=== PATIENT | female | born 1950 | race Hispanic/Latino ===

== ENCOUNTER 2018-11-16 21:30 | Emergency (ER) | payer OTHER ==
[~2018-11-16 21:30] MED LIST: CALC200T42 PO; CALC480G PO; LABE200T5 PO; LISI-613 PO; MAGN250T2 PO; PRAV20TA4 PO; SITA1TBM7 PO; VITA1CAP85 PO
[2018-11-16] MEDS ORDERED: IBUPROFEN 600 MG TABLET ONE (22:00)
== END 2018-11-16 22:55 | disposition home or self-care (01) ==
LOC: EDH 21:30
DX: S93.492A Sprain of other ligament of left ankle, initial encounter (principal); S73.192A Other sprain of left hip, initial encounter; S93.692A Other sprain of left foot, initial encounter; E78.5 Hyperlipidemia, unspecified; E11.9 Type 2 diabetes mellitus without complications; I10 Essential (primary) hypertension; Z90.49 Acquired absence of other specified parts of digestive tract; Z90.710 Acquired absence of both cervix and uterus; Z98.890 Other specified postprocedural states; W18.39XA Other fall on same level, initial encounter; Y93.01 Activity, walking, marching and hiking; Y92.89 Other specified places as the place of occurrence of the external cause; Y99.8 Other external cause status
CPT/HCPCS: 73552; 73610; 73620

== ENCOUNTER 2020-09-08 15:54 | Emergency (ER) | payer OTHER ==
[2020-09-08 16:19] LABS: BASOPHILS % (AUTO) 0.1 % (0.0-5.0); HEMATOCRIT 41.7 % (36-48); LYMPHOCYTES % (AUTO) 23.5 % (21.0-51.0); MEAN CORPUSCULAR HGB CONC 31.9 g/dL (32.0-36.0); MEAN CORPUSCULAR VOLUME 94.1 fL (79-99); MONOCYTES % (AUTO) 7.7 % (3.0-13.0); NEUTROPHILS % (AUTO) 64.6 % (40.0-77.0); PLATELET COUNT (AUTO) 199 K/uL (130-400); RED BLOOD CELL COUNT(AUTO) 4.43 MIL/uL (4.00-5.50); RED CELL DISTRIBUTION WIDTH 13.5 % (11.0-15.5); WHITE BLOOD COUNT (AUTO) 7.4 K/uL (4.8-10.8)
[2020-09-08 16:32] LABS: INR 1.02 (0.85-1.15); PROTHROMBIN TIME 10.9 SEC (9.6-11.6)
[2020-09-08 16:33] LABS: PARTIAL THROMBOPLASTIN TIME 25.2 SEC (26.3-35.5)
[2020-09-08 16:44] LABS: CREATININE 0.8 mg/dL (0.5-1.5); POTASSIUM 4.4 mmol/L (3.5-5.1)
[2020-09-08 16:48] LABS: ALBUMIN 3.6 g/dL (3.5-5.0); BILIRUBIN,TOTAL 0.2 mg/dL (0.2-1.0); TOTAL PROTEIN, SERUM 7.1 g/dL (6.0-8.3)
[2020-09-08 17:30] LABS: APPEARANCE,URINE Clear (CLEAR); BILIRUBIN,URINE Negative (NEGATIVE); COLOR,URINE Yellow (YELLOW); GLUCOSE, URINE (UA) Negative (NEGATIVE); KETONES,URINE Negative (NEGATIVE); LEUKOCYTE ESTERASE ,URINE Negative (NEGATIVE); NITRATE,URINE Negative (NEGATIVE); OCCULT BLOOD,URINE Negative (NEGATIVE); PH,URINE 5.5 (5.0-8.0); PROTEIN,URINE Negative (NEGATIVE); UROBILINOGEN,URINE 0.2 mg/dL (0.2-1.0)
[2020-09-08 17:38] LABS: AMPHET/METH SCREEN,URINE NEGATIVE (NEGATIVE); BARBITURATE SCREEN, URINE NEGATIVE (NEGATIVE); BENZODIAZEPINES SCREEN,URINE NEGATIVE (NEGATIVE); CANNABINOID SCREEN,URINE NEGATIVE (NEGATIVE); COCAINE SCREEN,URINE NEGATIVE (NEGATIVE); OPIATE SCREEN,URINE NEGATIVE (NEGATIVE); PHENCYCLIDINE SCREEN,URINE NEGATIVE (NEGATIVE)
[2020-09-08] MEDS ORDERED: METOCLOPRAMIDE 10 MG/2 ML VIAL ONE (18:42)
[2020-09-08] MEDS ORDERED: DiphenhydrAMINE HCL 50 MG/ML VIAL ONE (18:42)
[2020-09-08] MEDS ORDERED: SODIUM CHLORIDE 0.9% 100 ML IV ONE (18:43)
[2020-09-08] MEDS ORDERED: KETOROLAC TROMETHAMINE 15MG/ML ONE (19:18)
== END 2020-09-08 19:59 | disposition home or self-care (01) ==
LOC: EDH 15:54
DX: R51.9 Headache, unspecified (principal); R20.2 Paresthesia of skin; R07.89 Other chest pain; Z20.822 Contact with and (suspected) exposure to COVID-19; E11.9 Type 2 diabetes mellitus without complications; E78.5 Hyperlipidemia, unspecified; I10 Essential (primary) hypertension
CPT/HCPCS: 36415; 70450; 71045; 80053; 80305; 81003; 82550; 83721; 84484; 85025; 85610; 85651; 85730; 93005; 96361; 96374; 96375; 99285; J1200; J1885; J2765; U0003

== ENCOUNTER 2020-11-04 01:50 | Emergency (ER) | payer OTHER ==
[~2020-11-04 01:50] MED LIST changes: -LISI-613 PO; +LISI20TA24 PO
[2020-11-04] MEDS ORDERED: ASPIRIN 325 MG TABLET ONE (02:16)
[2020-11-04] MEDS ORDERED: NITROGLYCERIN 1GM/1 INCH PACKET TD ONE (02:16)
[2020-11-04] MEDS ORDERED: MAGNESIUM HYDROXIDE 30 ML/UDCUP ONE (02:17)
[2020-11-04] MEDS ORDERED: LIDOCAINE HCL 2% VISCOUS 15 ML UDCUP ONE (02:17)
[2020-11-04 02:20] LABS: BASOPHILS % (AUTO) 0.2 % (0.0-5.0); EOSINOPHILS % (AUTO) 2.6 % (0.0-8.0); HEMATOCRIT 34.9 % (36-48); LYMPHOCYTES % (AUTO) 33.6 % (21.0-51.0); MEAN CORPUSCULAR HEMOGLOBIN 31.3 pg (27.0-33.0); MEAN CORPUSCULAR VOLUME 94.8 fL (79-99); MONOCYTES % (AUTO) 7.9 % (3.0-13.0); NEUTROPHILS % (AUTO) 55.7 % (40.0-77.0); PLATELET COUNT (AUTO) 177 K/uL (130-400); RED BLOOD CELL COUNT(AUTO) 3.68 MIL/uL (4.00-5.50); RED CELL DISTRIBUTION WIDTH 13.4 % (11.0-15.5); WHITE BLOOD COUNT (AUTO) 5.3 K/uL (4.8-10.8)
[2020-11-04 02:30] LABS: CREATININE 0.7 mg/dL (0.5-1.5); POTASSIUM 4.2 mmol/L (3.5-5.1)
[2020-11-04 02:33] LABS: PROTHROMBIN TIME 10.9 SEC (9.6-11.6)
[2020-11-04 02:34] LABS: ALBUMIN 3.3 g/dL (3.5-5.0); BILIRUBIN,TOTAL 0.2 mg/dL (0.2-1.0); PARTIAL THROMBOPLASTIN TIME 26.5 SEC (26.3-35.5); TOTAL PROTEIN, SERUM 6.5 g/dL (6.0-8.3)
[2020-11-04 02:40] LABS: B-TYPE NATRIURETIC PEPTIDE 55 pg/mL (0-100)
[2020-11-04] MEDS ORDERED: SODIUM CHLORIDE 0.9% 1000ML 1,000 ML IV ONE (05:29)
[2020-11-04] MEDS ORDERED: FAMOTIDINE/PF 20 MG/2 ML VIAL IV ONE (05:31)
[2020-11-04] MEDS ORDERED: IOHEXOL 350 MG/ML 100ML INFUS..BTL IV ONE (06:14)
== END 2020-11-04 10:39 | disposition home or self-care (01) ==
LOC: EDH 01:50
DX: R07.89 Other chest pain (principal); R10.13 Epigastric pain; F45.0 Somatization disorder; M54.6 Pain in thoracic spine; F41.9 Anxiety disorder, unspecified; E11.9 Type 2 diabetes mellitus without complications; E78.5 Hyperlipidemia, unspecified; I10 Essential (primary) hypertension; Z90.49 Acquired absence of other specified parts of digestive tract; Z90.710 Acquired absence of both cervix and uterus
CPT/HCPCS: 36415; 71046; 71275; 74177; 80053; 82550; 83690; 83880; 84484; 85025; 85610; 85730; 93005; 96361; 96374; 99285; J3490; J7030; Q9967

== ENCOUNTER 2020-11-30 06:08 | Day surgery (SDC) | payer OTHER ==
[~2020-11-30] VITALS: Ht 165.1 cm; Wt 81.6 kg
[~2020-11-30 06:08] MED LIST changes: -CALC200T42 PO; -CALC480G PO; +FLUT15.845 NS; -LISI20TA24 PO; +PIOG30TA10 PO; -PRAV20TA4 PO; -SITA1TBM7 PO; +SUCR1TAB2 PO; -VITA1CAP85 PO
[2020-11-30] MEDS ORDERED: SODIUM CHLORIDE 0.9% 1000ML 1,000 ML IV ONE (06:22)
[2020-11-30 07:38] VITALS: BP 140/75
[2020-11-30] MEDS ORDERED: PROPOFOL 10 MG/ML 20ML VIAL IV ONE (07:47)
[2020-11-30] MEDS ORDERED: LIDOCAINE HCL 1% 20 ML VIAL ONE (07:47)
[2020-11-30 08:15] VITALS: BP 114/61
[2020-11-30 08:20] VITALS: BP 113/63
[2020-11-30 08:34] VITALS: BP 115/64
[2020-11-30 08:38] VITALS: BP 131/64
== END 2020-11-30 08:47 | disposition home or self-care (01) ==
LOC: ENDO 06:08 → DAH 06:08 → ENDO 08:47
PROVIDERS: ATTEND Internal Medicine Gastroenterology
DX: R14.0 Abdominal distension (gaseous) (principal); Z20.822 Contact with and (suspected) exposure to COVID-19; K57.30 Diverticulosis of large intestine without perforation or abscess without bleeding; K21.00 Gastro-esophageal reflux disease with esophagitis, without bleeding; K29.70 Gastritis, unspecified, without bleeding; I10 Essential (primary) hypertension; E66.9 Obesity, unspecified; E11.9 Type 2 diabetes mellitus without complications; E78.5 Hyperlipidemia, unspecified; Z86.010 Personal history of colon polyps; Z90.710 Acquired absence of both cervix and uterus; Z90.89 Acquired absence of other organs; Z90.49 Acquired absence of other specified parts of digestive tract; Z68.30 Body mass index [BMI] 30.0-30.9, adult; Z79.899 Other long term (current) drug therapy
CPT/HCPCS: 43239; 45378; 82948; A4215 ×2; A4221; A4222; A4223; A4606; A4620; A4657 ×2; A4663; C9803; J2704; J7030; U0003

== ENCOUNTER 2021-05-07 15:52 | Emergency (ER) | payer OTHER ==
[~2021-05-07] VITALS: Ht 165.1 cm; Wt 81.6 kg
[2021-05-07] MEDS ORDERED: ALBUTEROL INHALER 90MCG/INH IH PRN (17:00)
[2021-05-07] MEDS ORDERED: ACETAMINOPHEN WITH CODEINE 1 TAB TAB PO ONE (17:00)
[2021-05-07] MEDS ORDERED: D-ME1POW16 PO (17:01)
[2021-05-07] MEDS ORDERED: ALBUHFA IH (17:01)
[2021-05-07] MEDS ORDERED: FLUT1DIS IH (17:01)
[2021-05-07] MEDS ORDERED: ACETAMINOPHEN WITH CODEINE 1 TAB TAB ONE (17:26)
[2021-05-07] MEDS ORDERED: ALBUTEROL INHALER 90MCG/INH IH ONE (17:26)
[2021-05-07 17:34] VITALS: BP 145/84
== END 2021-05-07 17:40 | disposition home or self-care (01) ==
LOC: EDH 15:52
DX: U07.1 COVID-19 (principal); J22 Unspecified acute lower respiratory infection; I10 Essential (primary) hypertension; E11.9 Type 2 diabetes mellitus without complications; E78.00 Pure hypercholesterolemia, unspecified; Z79.51 Long term (current) use of inhaled steroids; Z79.84 Long term (current) use of oral hypoglycemic drugs; Z79.899 Other long term (current) drug therapy
CPT/HCPCS: 87635; 87804 ×2; 87880; 99283; C9803

== ENCOUNTER → 2023-08-10 | Outpatient (CLI) | payer OTHER ==
[~2023-08-10] MED LIST changes: +ALBUHFA IH; +D-ME1POW16 PO; +FLUT1DIS IH; -LABE200T5 PO; +LABE200T7 PO; -MAGN250T2 PO; +MAGN250T35 PO
[2023-08-10 09:34] LABS: BASOPHILS # (AUTO) 0.02 K/uL (0.00-0.20); BASOPHILS % (AUTO) 0.4 % (0.0-5.0); EOSINOPHILS # (AUTO) 0.09 K/uL (0.00-0.70); EOSINOPHILS % (AUTO) 1.6 % (0.0-8.0); HEMATOCRIT 44.8 % (36-48); IMMATURE GRANULOCYTE ABSOLUTE 0.01 K/uL (0-1); LYMPHOCYTES # (AUTO) 1.6 K/uL (1.0-4.8); LYMPHOCYTES % (AUTO) 28.6 % (21.0-51.0); MEAN CORPUSCULAR HEMOGLOBIN 30.7 pg (27.0-33.0); MEAN CORPUSCULAR HGB CONC 32.1 g/dL (32.0-36.0); MEAN CORPUSCULAR VOLUME 95.5 fL (79-99); MONOCYTES # (AUTO) 0.3 K/uL (0.1-1.0); MONOCYTES % (AUTO) 5.3 % (3.0-13.0); NEUTROPHILS # (AUTO) 3.6 K/uL (1.8-7.7); NEUTROPHILS % (AUTO) 63.9 % (40.0-77.0); PLATELET COUNT (AUTO) 201 K/uL (130-400); RED BLOOD CELL COUNT(AUTO) 4.69 MIL/uL (4.00-5.50); RED CELL DISTRIBUTION WIDTH 12.9 % (11.0-15.5); WHITE BLOOD COUNT (AUTO) 5.6 K/uL (4.8-10.8)
[2023-08-10 09:43] LABS: HEMOGLOBIN A1C 7.1 % (4.0-6.0)
[2023-08-10 09:51] LABS: ALBUMIN 3.7 g/dL (3.5-5.0); BILIRUBIN,TOTAL 0.5 mg/dL (0.2-1.0); CREATININE 0.7 mg/dL (0.5-1.5); POTASSIUM 4.8 mmol/L (3.5-5.1); TOTAL PROTEIN, SERUM 7.5 g/dL (6.0-8.3)
== END | disposition home or self-care (01) ==
LOC: LAB 09:20
PROVIDERS: ATTEND Internal Medicine
DX: E11.65 Type 2 diabetes mellitus with hyperglycemia (principal)
CPT/HCPCS: 36415; 80053; 83036; 85025